=== PATIENT | female | born 1940 | race African-American/Black ===

== ENCOUNTER 2020-07-05 09:57 | Emergency (ER) | payer MEDICARE, OTHER ==
[~2020-07-05 09:57] MED LIST: ADALAT CC30 MG PO; ARICEPT 5MG TABL5 MG PO; ASPIRIN EC81 MG PO; ATROVENT (00.2 MG/ML INH; ATROVENT HFA12.9 GM INH; CEFDINIR300 MG PO; CITALOPRAM HBR20 MG PO; COLACE100 M1 PO; COZAAR50 MG PO; CREON DR 36,001 EACH PO; DUONEB 2.5-0.5M1 AMP NEB; HCTZ25 MG PO; HYDRALAZINE25 MG PO; INCRUSE ELLI62.5 MCG INH; IRON325 M1 PO; KEPPRA100 MG/11 PO; KEPPRA1000 MG PO; LEVAQUIN500 MG PO; MEGACE ORA6 TSP/1 OZ PO; MEGESTROL ACETA40 MG PO; METRONIDAZOLE500 MG PO; MUCINEX 600MG600 MG PO; MULTI-VITAMIN1 EACH PO; MULTIVITAMINS1 EAC1 PO; NEBULIZER UNIT; NORCO 5-325 TA1 EACH PO; NORVASC5 MG PO; PEPCID AC20 MG PO; PREDNISONE 20MG20 MG PO; PREDNISONE10 M1 PO; REFRESH PLUS1 EACH EYEBOTH; REFRESH TEARS15 ML OS; REMERON15 MG PO; SYMBICORT 16010.2 GM INH; SYMBICORT 80-10.2 GM INH; VENELEX OINTMEN60 GM TOP; VENTOLIN HFA IN18 GM INH; VIBRAMYCIN100 MG PO; XALATAN2.5 ML EYERT; ZANTAC150 MG PO
[2020-07-05 10:53] LABS: BASOPHIL 0.4 % (0-2); EOSINOPHIL 1.7 % (0-7); HCT 27.8 % (37.0-47.0); HGB 8.4 g/dl (12.5-16.0); LYMPHOCYTE 5.4 % (15-48); MCH 31.1 pg (25.0-31.0); MCHC 30.2 g/dL (32.0-36.0); MONOCYTE 6.1 % (0-12); MPV 9.6 fL (6.0-9.5); NRBC 0; PLT 232 K/uL (150-400); RDW 16.5 % (11.5-14.0); WBC 11.3 K/uL (4.0-10.5)
[2020-07-05 11:52] LABS: ALBUMIN 3.5 g/dL (3.4-5.0); BILIRUBIN - TOTAL 0.2 mg/dL (0.2-1.0); BUN/CREAT RATIO (CALC) 34.4 RATIO; CREATININE 0.61 mg/dL (0.51-0.95); GLOBULIN (CALCULATION) 3.8 g/dL; POTASSIUM 5.3 mmol/L (3.5-5.1); TOTAL PROTEIN 7.3 g/dL (6.4-8.2)
[2020-07-05 12:15] LABS: PRO-BNP 561 pg/mL (<450)
[2020-07-05 12:19] LABS: BILIRUBIN NEGATIVE (NEGATIVE); BLOOD NEGATIVE Ery/uL (NEGATIVE); CLARITY CLEAR (CLEAR); COLOR YELLOW (YELLOW); GLUCOSE (U) NORMAL (NORMAL); LEUKOCYTES NEGATIVE Leu/uL (NEGATIVE); NITRITE NEGATIVE (NEGATIVE); PROTEIN TRACE (LOW) mg/dL (NEGATIVE); UROBILINOGEN 0.2 mg/dL (0.2-1.0)
[2020-07-05 12:19] LABS: LACTIC ACID 1.1 mmol/L (0.4-1.9)
[2020-07-05 12:23] LABS: URINARY WBC RARE
[2020-07-05 13:10] LABS: CORONAVIRUS 2019 SARS-COV-2 NEGATIVE (NEGATIVE); INFLUENZA A NAA NEGATIVE (NEGATIVE)
[2020-07-05] MEDS ORDERED: LASIX20 MG PO (15:07)
== END 2020-07-05 16:00 | disposition home or self-care (01) ==
LOC: FER 09:57
PROVIDERS: Emergency Medicine
DX: J81.1 Chronic pulmonary edema (principal); E87.5 Hyperkalemia; J44.9 Chronic obstructive pulmonary disease, unspecified; Z20.822 Contact with and (suspected) exposure to COVID-19; Z87.891 Personal history of nicotine dependence; Z98.890 Other specified postprocedural states; R53.83 Other fatigue
CPT/HCPCS: 36415; 36600; 71045; 80053; 81001; 82150; 82803; 83605; 83880; 84145; 84484; 85025; 87040; 87088; 93005; G0463; J1940; U0002

== ENCOUNTER 2020-07-21 14:44 | Inpatient (IN) | payer MEDICARE, OTHER ==
[~2020-07-21 14:44] MED LIST changes: +LASIX20 MG PO
[2020-07-21 17:37] LABS: BASOPHIL 0.4 % (0-2); EOSINOPHIL 0.2 % (0-7); HCT 25.8 % (37.0-47.0); HGB 7.5 g/dl (12.5-16.0); LYMPHOCYTE 3.7 % (15-48); MCH 30.9 pg (25.0-31.0); MCHC 29.1 g/dL (32.0-36.0); MCV 106.2 fL (78.0-100.0); MONOCYTE 6.8 % (0-12); MPV 9.3 fL (6.0-9.5); NRBC 0.3; PLT 279 K/uL (150-400); RBC 2.43 M/uL (4.20-5.40); RDW 17.2 % (11.5-14.0); WBC 13.7 K/uL (4.0-10.5)
[2020-07-21 17:49] LABS: ALBUMIN 3.2 g/dL (3.4-5.0); BILIRUBIN - TOTAL 0.1 mg/dL (0.2-1.0); BUN/CREAT RATIO (CALC) 28.8 RATIO; CREATININE 0.66 mg/dL (0.51-0.95); GLOBULIN (CALCULATION) 4.1 g/dL; POTASSIUM 4.7 mmol/L (3.5-5.1); TOTAL PROTEIN 7.3 g/dL (6.4-8.2)
[2020-07-21 18:03] LABS: LACTIC ACID 0.7 mmol/L (0.4-1.9)
[2020-07-21 18:36] LABS: BILIRUBIN NEGATIVE (NEGATIVE); BLOOD NEGATIVE Ery/uL (NEGATIVE); CLARITY CLEAR (CLEAR); COLOR YELLOW (YELLOW); GLUCOSE (U) NORMAL (NORMAL); LEUKOCYTES NEGATIVE Leu/uL (NEGATIVE); NITRITE NEGATIVE (NEGATIVE); PROTEIN NEGATIVE (NEGATIVE); UROBILINOGEN 0.2 mg/dL (0.2-1.0); pH 5.5 (5.0-9.0)
[2020-07-21] MEDS ORDERED: REMERON15 MG PO (23:59)
[2020-07-22] MEDS ORDERED: MEMANTINE HCL E28 MG PO (00:01)
[2020-07-22] MEDS ORDERED: VENTOLIN HFA IN18 GM INH (00:03)
[2020-07-22 00:15] LABS: IRON % SATURATION 16.5 %SAT (20-50)
[2020-07-22 05:11] LABS: BASOPHIL 0.2 % (0-2); EOSINOPHIL 0.9 % (0-7); HCT 24.5 % (37.0-47.0); HGB 7.3 g/dl (12.5-16.0); MCHC 29.8 g/dL (32.0-36.0); MCV 100.8 fL (78.0-100.0); MONOCYTE 7.5 % (0-12); MPV 8.7 fL (6.0-9.5); NEUTROPHIL 86.9 % (41-80); NRBC 0.2; PLT 218 K/uL (150-400); RBC 2.43 M/uL (4.20-5.40); WBC 12.9 K/uL (4.0-10.5)
[2020-07-22 05:39] LABS: BUN/CREAT RATIO (CALC) 28.6 RATIO; CREATININE 0.84 mg/dL (0.51-0.95); POTASSIUM 4.7 mmol/L (3.5-5.1)
--- NOTE | 2020-07-22 06:37 | NUR ---
PATIENT BLOOD SUGAR 56, PUDDING GIVEN AND EATEN BY PATIENT.
[2020-07-23 05:06] LABS: BASOPHIL 0.2 % (0-2); EOSINOPHIL 0.1 % (0-7); HCT 23.7 % (37.0-47.0); HGB 6.9 g/dl (12.5-16.0); LYMPHOCYTE 6.8 % (15-48); MCH 29.7 pg (25.0-31.0); MCHC 29.1 g/dL (32.0-36.0); MCV 102.2 fL (78.0-100.0); MONOCYTE 8.4 % (0-12); MPV 8.5 fL (6.0-9.5); NEUTROPHIL 83.7 % (41-80); NRBC 0; PLT 178 K/uL (150-400); RBC 2.32 M/uL (4.20-5.40); RDW 18.1 % (11.5-14.0); WBC 11.8 K/uL (4.0-10.5)
[2020-07-23 05:30] LABS: CREATININE 0.74 mg/dL (0.51-0.95); MAGNESIUM 1.9 mg/dL (1.8-2.4); POTASSIUM 4.5 mmol/L (3.5-5.1)
--- NOTE | 2020-07-23 06:32 | NUR ---
PT. NOT TALKING MUCH SHE DID YESTERDAY AT THE BEGINNING OF MY SHIFT. STARING OFF INTO SPACE. PT. WAS PUT ON BIPAP AROUND HS. AT 0030 PT. REQUESTED TO HAVE BIPAP MASK TAKEN OFF. PT. WAS TALKING MORE AND WORDS WERE MORE APPROPRIATE. SHE WAS PLACED ON 2L NC. AROUND 0130 PT WAS TURNED TO CHECK THE BED AND HER O2 DROPPED TO 68% ON THE 2LNC AND EXPRESSED THAT SHE WAS SHORT OF AIR. 100% NRB WAS PLACED ON PT. AND RT CAME UP AND PUT HER BACK ON BIPAP. PT. HAD A RUN OF SINUS TACH AT 127 BUT CAME BACK DOWN TO HER NORMAL 80'S QUICKLY. PT. HAS EXPRESSED THAT SHE IS READY TO . WILL CONTINUE TO MONITOR CLOSELY. SON IS AT BEDSIDE.
[2020-07-24 05:09] LABS: BASOPHIL 0.5 % (0-2); EOSINOPHIL 0 % (0-7); HCT 39.7 % (37.0-47.0); LYMPHOCYTE 5.4 % (15-48); MCH 30.6 pg (25.0-31.0); MCHC 28.7 g/dL (32.0-36.0); MCV 106.7 fL (78.0-100.0); MONOCYTE 8.3 % (0-12); MPV 9.2 fL (6.0-9.5); NEUTROPHIL 83.8 % (41-80); NRBC 0; PLT 164 K/uL (150-400); RBC 3.72 M/uL (4.20-5.40); WBC 11.1 K/uL (4.0-10.5)
[2020-07-24 05:37] LABS: HGB 11.4 g/dl (12.5-16.0)
[2020-07-24 05:47] LABS: ALBUMIN 2.5 g/dL (3.4-5.0); BILIRUBIN - TOTAL 0.2 mg/dL (0.2-1.0); BUN/CREAT RATIO (CALC) 35.5 RATIO; CREATININE 1.1 mg/dL (0.51-0.95); MAGNESIUM 2.1 mg/dL (1.8-2.4); TOTAL PROTEIN 6.5 g/dL (6.4-8.2)
[2020-07-24 06:02] LABS: POTASSIUM 5.7 mmol/L (3.5-5.1)
--- NOTE | 2020-07-24 13:47 | NUR ---
07/24/20 Ms. Montalvo is receiving comfort care. Emotional support is being provided with the family.
--- NOTE | 2020-07-24 21:12 | NUR ---
AT 1940 GLOVE FINISHER WAS CALLED TO BEDSIDE, PATIENT WAS AGONAL BREATHING AND HR ON MONITOR WAS 20. FAMILY WAS ADVISED TO SIT BESIDE BED AND HOLD PATIENT HANDS , WHICH THEY DID. FAMILY SPENT LAST FEW MINUTES OF PATIENTS LIFE LIKE THIS. GLOVE FINISHER WENT IN AT 1944 AND PRONOUNCED PATIENT . FAMILY STAYED A FEW MINUTES AND LEFT, WISHED TO LEAVE JEWELRY (RINGS) ON PATIENT. DAUGHTER TOOK LIFE ALERT BRACELET. DAUGHTER TOOK ROGEL WITH HER. [facility] WAS CONTACTED, SPOKE WITH MARY JO MCCARTY, CASE ID NUMBER IS [id number]. NOT A CANDIDATE FOR ANY TYPE OF DONATION DUE TO AGE OF PATIENT. FLAKER OPERATOR FROM [facility], [place] CAME AT 2114 AND PICKED UP BODY.
== END 2020-07-24 21:15 | disposition expired | DRG 189 ==
LOC: FER 14:44 → FICU 18:10
PROVIDERS: Emergency Medicine; Nurse Practitioner; ADMIT Internal Medicine
PROC: 5A09457 Assistance with Respiratory Ventilation, 24-96 Consecutive Hours, Continuous Positive Airway Pressure (ICD-10-PCS; principal; 2020-07-21)
PROC: 30233N1 Transfusion of Nonautologous Red Blood Cells into Peripheral Vein, Percutaneous Approach (ICD-10-PCS; 2020-07-23)
DX: J96.21 Acute and chronic respiratory failure with hypoxia (principal); I13.0 Hypertensive heart and chronic kidney disease with heart failure and stage 1 through stage 4 chronic kidney disease, or unspecified chronic kidney disease; I50.32 Chronic diastolic (congestive) heart failure; J96.22 Acute and chronic respiratory failure with hypercapnia; J43.9 Emphysema, unspecified; D47.2 Monoclonal gammopathy; Z66 Do not resuscitate; Z51.5 Encounter for palliative care; F41.9 Anxiety disorder, unspecified; F32.9 Major depressive disorder, single episode, unspecified; N18.9 Chronic kidney disease, unspecified; D63.1 Anemia in chronic kidney disease; Z20.822 Contact with and (suspected) exposure to COVID-19; K29.50 Unspecified chronic gastritis without bleeding; M06.9 Rheumatoid arthritis, unspecified; F17.210 Nicotine dependence, cigarettes, uncomplicated; Z88.0 Allergy status to penicillin; Z88.2 Allergy status to sulfonamides; Z88.8 Allergy status to other drugs, medicaments and biological substances; Z98.890 Other specified postprocedural states; Z99.81 Dependence on supplemental oxygen; I25.2 Old myocardial infarction; Z98.51 Tubal ligation status; W19.XXXA Unspecified fall, initial encounter; Z87.01 Personal history of pneumonia (recurrent); Y92.009 Unspecified place in unspecified non-institutional (private) residence as the place of occurrence of the external cause
CPT/HCPCS: 36415; 36430; 36600; 70450; 71045; 72170; 80048; 80053; 81003; 82803; 83540; 83550; 83605; 83735; 83880; 84145; 84443; 84484; 85025; 86850; 86900; 86901; 86922; 93005; 94640; 94660; 94664; J1650; J1953; J1956; J3360; J7030; P9016; U0002